=== PATIENT | male | born 1965 | race Caucasian/White ===

== ENCOUNTER 2021-01-16 13:24 | Emergency (ER) | payer OTHER ==
[~2021-01-16] VITALS: Ht 172.7 cm; Wt 94.0 kg
[2021-01-16] MEDS ORDERED: DIPH,PERTUSS(ACELL),TET VAC/PF 0.5 ML SYRINGE. VAX IM ONE (14:15)
[2021-01-16] MEDS ORDERED: LIDOCAINE 1%/EPI 1:100,000 20 ML VIAL. ONE (14:20)
[2021-01-16] MEDS ORDERED: LIDOCAINE 1%/EPI 1:100,000 20 ML VIAL. INJ ONE (14:30)
[2021-01-16 15:34] VITALS: BP 138/90
--- NOTE | 2021-01-16 15:37 | PHYS DOC ---
Past History Past Surgical History: No Surgical History Alcohol Use: None General Adult EDM: Chief Complaint: LACERATION/AVULSION Problems: (1) Laceration of left leg HPI: HPI: Patient is a 55 year old male who presents with laceration to the left lower extremity. 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 The sheet was not mounted entirely, and it fell down and cut his leg. Patient states that the time he did not realize that he had been cut, until he looked down and saw blood. He states that he normally wears jeans or work pants, but was wearing shorts today because it was hot. Patient states it has been probably 10 years since he was last updated on his tetanus vaccine. He states that the metal was new, and not rested and no pieces were missing. He rates his pain 1/10. He has no other complaints at this time. Review of Systems: Review of Systems: ROS negative except as mentioned in HPI. Current Medications: Current Meds: Current Medications Medications (Trade) Dose Ordered Sig/Eric Start Time Stop Time Status Last Admin Dose Admin Diphtheria/ Pertussis/Tetanus Vacc (ADACEL TDap SYRINGE) 0.5 ml ONCE ONCE 01/16/21 14:15 01/16/21 14:20 DC 01/16/21 15:19 0.5 ML Lidocaine/ Epinephrine (Xylocaine 1%-Epi 1:100,000) 20 ml STK-MED ONCE 01/16/21 14:20 01/16/21 14:20 DC Allergies: Allergies: Allergies Coded Allergies Type Severity Reaction Last Updated Verified levothyroxine sodium Allergy Unknown 01/16/21 Yes Physical Exam: PE: Constitutional: Well developed, well nourished, no acute distress, non-toxic appearance. Cardiovascular: Heart rate regular rhythm, no murmur. Lungs & Thorax: Bilateral breath sounds clear to auscultation. Skin: 8 cm laceration to the anterior portion of lower left leg, wound open approximately 1 cm. Otherwise skin is warm, dry, no erythema, no rash. Extremities: No tenderness, no cyanosis, no clubbing, ROM intact, no edema. Neurologic: Alert and oriented X 3, normal motor function, normal sensory function, no focal deficits noted. Current Patient Data: Vital Signs: Vital Signs Date Time Temp Pulse Resp B/P (MAP) Pulse Ox O2 Delivery O2 Flow Rate FiO2 01/16/21 15:34 87 16 138/90 (106) 97 Room Air 01/16/21 13:33 98.6 Heart Score: C/O Chest Pain: No Course & Med Decision Making: Course & Med Decision Making Pertinent Labs and Imaging studies reviewed. (See chart for details) Wound bleeding was minimal on exam. There are no foreign bodies, and no visible bone or tendon. Patient will be given tetanus vaccination. Wound was cleansed, sutured and dressed. No debridement was necessary and the wound margins are approximated. Patient is to return if the wound shows any signs of infection. Dragon Disclaimer: Dragon Disclaimer: This electronic medical record was generated, in whole or in part, using a voice recognition dictation system. Departure Departure: Impression: Primary Impression: Laceration of left leg Qualified Codes: S81.812A - Laceration without foreign body, left lower leg, initial encounter Disposition: HOME / SELF CARE / HOMELESS Condition: STABLE Referrals: RYLEE JOHNSON MD (PCP) Patient Instructions: Laceration Care, Adult, [id number] Additional Instructions: As instructed, keep the wound dry and clean. You may shower, but avoid prolonged submersion in water. The sutures may be removed in 7 to 10 days, either by your primary care provider or here in the emergency department. Please return if the wound has increased redness or discharge, or if you develop a fever. Laceration Repair Lac Repair Indication: Lower left leg laceration Procedure: The patient was placed in the appropriate position and anesthesia around the laceration was approximately 7 mL 1% lidocaine with epi. The area was then cleansed with Betadine. No debridement was necessary. The laceration was closed with 7 simple interrupted sutures using 3-0 nylon. There were no additional lacerations the wound area was then dressed with antibiotic ointment and gauze. Total repaired wound length: Approximately 8 cm. Other Items: The patient tolerated the procedure very well. Complications: No complications. SANDY BURGESS Jan 16, 2021 15:37
[2021-01-16] MEDS ORDERED: NEOMY/BACITR/POLYMYXIN OINT PACKET. TP ONE (16:00)
== END 2021-01-16 15:55 | disposition home or self-care (01) ==
LOC: ER 13:24
DX: S81.812A Laceration without foreign body, left lower leg, initial encounter (principal); Z88.8 Allergy status to other drugs, medicaments and biological substances; Y93.89 Activity, other specified; Y92.89 Other specified places as the place of occurrence of the external cause; Y99.8 Other external cause status; W45.8XXA Other foreign body or object entering through skin, initial encounter
CPT/HCPCS: 12004; 90471; 90715; 99283